=== PATIENT | male | born 2000 | race Caucasian/White ===

== ENCOUNTER 2024-10-20 10:34 | Emergency (ER) | payer SELFPAY ==
[~2024-10-20] VITALS: Ht 172.7 cm; Wt 80.0 kg
[2024-10-20 10:37] VITALS: O2SAT 96
[2024-10-20] MEDS: LIDOCAINE HCL 1% 20ML VIAL INFIL ONE (11:00)
[2024-10-20 13:18] VITALS: BP 107/47; PULSE 67; RESP 17; TEMP 36.9; O2SAT 96
== END 2024-10-20 13:23 | disposition left against medical advice (07) ==
LOC: ER 10:34
DX: S61.216A Laceration without foreign body of right little finger without damage to nail, initial encounter (principal); S09.90XA Unspecified injury of head, initial encounter; F10.939 Alcohol use, unspecified with withdrawal, unspecified; R56.9 Unspecified convulsions; X58.XXXA Exposure to other specified factors, initial encounter; Y93.89 Activity, other specified; Y92.89 Other specified places as the place of occurrence of the external cause; Y99.8 Other external cause status; Y90.9 Presence of alcohol in blood, level not specified
CPT/HCPCS: 12002; 99283; J2003; Z7610